=== PATIENT | male | born 1940 | race Caucasian/White ===

== ENCOUNTER 2022-06-26 19:13 | Inpatient (IN) ==
[2022-06-26] MEDS ORDERED: PANTOPRAZOLE 40 MG VIAL IV STA (19:45)
[2022-06-26] MEDS ORDERED: DIPH/TET/ACEL PERT BOOSTER VACCINE 0.5 ML VIAL IM ONE (19:45)
[2022-06-26 20:16] LABS: Basophils % 0.2 % (0.0-0.8); Hematocrit 30.5 VOL% (42.0-52.0); Hemoglobin 9.5 GM/DL (14.0-18.0); Immature Granulocytes % 0.5 %; Immature Granulocytes Absolute 0.06 #; Lymphocytes # 0.5 10*3/uL (1.4-4.0); Lymphocytes % 4.2 % (21.2-54.2); Mean Corpuscular HGB Conc 31.1 GM/DL (32-36); Mean Corpuscular Volume 92.4 FL (87-102); Mean Platelet Volume 8.7 FL (9.6-12.0); Monocytes # 0.6 10*3/uL (0.11-0.8); Monocytes % 4.9 % (1.7-12.7); Neutrophils % 90.2 % (38.7-73.9); Platelet Count 319 T/CUMM (130-400); Red Cell Distribution Width 13.2 % (9.3-17.3); White Blood Count 12.7 T/CUMM (4-12)
[2022-06-26 20:36] LABS: PT Patient Result 10.9 SECS (10.1-12.1)
[2022-06-26 20:38] LABS: Bilirubin,Total 0.5 MG/DL (0.20-1.00); Calcium 8.2 MG/DL (8.5-10.1); Osmolality,Calculated 279.8 MOS/KG (273-304); Potassium 4.8 MMOL/L (3.5-5.1); Total Protein 6.4 G/DL (6.4-8.2)
[2022-06-26 20:39] LABS: Lymphocytes 5 % (20-55); Total Cells Counted 100
[2022-06-26 20:40] LABS: Anisocytosis Slight
[2022-06-26 20:41] LABS: Elliptocytes Few; Ovalocytes Slight
[2022-06-26 20:46] LABS: Platelet Estimate Normal
[2022-06-26] MEDS ORDERED: SODIUM CHLORIDE 0.9% 1,000 ML IV STA (21:40)
[2022-06-26] MEDS ORDERED: ONDANSETRON 4 MG/2 ML VIAL IV PRN (21:47)
[2022-06-26] MEDS ORDERED: SIMETHICONE CHEW 125 MG TABLET PO PRN (21:47)
[2022-06-26] MEDS ORDERED: ACETAMINOPHEN 325 MG TABLET PO PRN (21:47)
[2022-06-26] MEDS ORDERED: SODIUM CHLORIDE 0.9% 1,000 ML IV PRN (22:21)
[2022-06-27] MEDS: SODIUM CHLORIDE 0.9% 1,000 ML IV SCH ×3 (00:36→21:16)
[2022-06-27 02:19] LABS: Hematocrit 27.9 VOL% (42.0-52.0); Hemoglobin 8.8 GM/DL (14.0-18.0)
[2022-06-27 02:41] LABS: Bilirubin,Total 0.6 MG/DL (0.20-1.00); Calcium 8.1 MG/DL (8.5-10.1); Osmolality,Calculated 276.8 MOS/KG (273-304); Potassium 4.7 MMOL/L (3.5-5.1); Total Protein 5.8 G/DL (6.4-8.2)
[2022-06-27 05:12] LABS: Basophils # 0.1 10*3/uL (0.0-0.2); Basophils % 0.5 % (0.0-0.8); Eosinophils % 0.1 % (0.00-10.9); Hematocrit 26.2 VOL% (42.0-52.0); Hemoglobin 8.1 GM/DL (14.0-18.0); Immature Granulocytes % 0.3 %; Immature Granulocytes Absolute 0.03 #; Lymphocytes # 1.5 10*3/uL (1.4-4.0); Lymphocytes % 14.7 % (21.2-54.2); Mean Corpuscular HGB Conc 30.9 GM/DL (32-36); Mean Platelet Volume 8.9 FL (9.6-12.0); Monocytes # 1.3 10*3/uL (0.11-0.8); Monocytes % 12.5 % (1.7-12.7); Neutrophils % 71.9 % (38.7-73.9); Platelet Count 280 T/CUMM (130-400); Red Blood Count 2.91 MC/CUMM (3.8-5.5); Red Cell Distribution Width 13.2 % (9.3-17.3)
[2022-06-27 05:25] LABS: PT Patient Result 11.4 SECS (10.1-12.1)
[2022-06-27 05:56] LABS: Hematocrit 25.3 VOL% (42.0-52.0); Hemoglobin 7.9 GM/DL (14.0-18.0)
[2022-06-27] MEDS ORDERED: traMADol 50 MG TABLET PO PRN (08:23)
[2022-06-27] MEDS ORDERED: METHOCARBAMOL 500 MG TABLET PO SCH (09:00)
[2022-06-27] MEDS: LISINOPRIL/HCTZ 20-12.5 MG TABLET PO SCH (09:38)
[2022-06-27] MEDS: OXYBUTYNIN XL 15 MG TABLET PO SCH (09:39)
[2022-06-27] MEDS: FLECAINIDE 50 MG TABLET PO SCH ×2 (09:39→21:09)
[2022-06-27] MEDS: PANTOPRAZOLE 40 MG VIAL IV SCH ×2 (09:46→21:10)
[2022-06-27] MEDS ORDERED: LIDOCAINE 2% 5 ML VIAL ONE (11:42)
[2022-06-27] MEDS ORDERED: propofoL 200 MG/20 ML VIAL IV ONE (11:42)
[2022-06-27 12:36] LABS: Hematocrit 26.9 VOL% (42.0-52.0); Hemoglobin 8.6 GM/DL (14.0-18.0)
[2022-06-27] MEDS ORDERED: LORazepam 1 MG TABLET PO SCH (21:00)
[2022-06-27] MEDS: cloNIDine 0.1 MG TABLET PO SCH (21:09)
[2022-06-27] MEDS: CITALOPRAM 40 MG TABLET PO SCH (21:09)
[2022-06-28 05:47] LABS: Basophils # 0.1 10*3/uL (0.0-0.2); Basophils % 0.7 % (0.0-0.8); Eosinophils # 0.1 10*3/uL (0.0-0.87); Eosinophils % 1.7 % (0.00-10.9); Hematocrit 23.5 VOL% (42.0-52.0); Hemoglobin 7.5 GM/DL (14.0-18.0); Immature Granulocytes % 0.4 %; Immature Granulocytes Absolute 0.03 #; Lymphocytes # 1.4 10*3/uL (1.4-4.0); Lymphocytes % 16.9 % (21.2-54.2); Mean Corpuscular HGB Conc 31.9 GM/DL (32-36); Mean Corpuscular Volume 90.7 FL (87-102); Mean Platelet Volume 8.8 FL (9.6-12.0); Monocytes # 1.4 10*3/uL (0.11-0.8); Monocytes % 16.6 % (1.7-12.7); Neutrophils % 63.7 % (38.7-73.9); Platelet Count 212 T/CUMM (130-400); Red Blood Count 2.59 MC/CUMM (3.8-5.5); Red Cell Distribution Width 13.8 % (9.3-17.3); White Blood Count 8.2 T/CUMM (4-12)
[2022-06-28 06:08] LABS: Osmolality,Calculated 278.7 MOS/KG (273-304); Potassium 4.3 MMOL/L (3.5-5.1)
[2022-06-28 06:11] LABS: Calcium 7.9 MG/DL (8.5-10.1); Osmolality,Calculated 278.7 MOS/KG (273-304); Potassium 4.4 MMOL/L (3.5-5.1)
[2022-06-28] MEDS: LEVOTHYROXINE 100 MCG TABLET PO SCH (06:17)
[2022-06-28] MEDS: SODIUM CHLORIDE 0.9% 1,000 ML IV SCH ×2 (06:18→17:29)
[2022-06-28 06:23] LABS: Hypochromia 1+; Lymphocytes 21 % (20-55); Total Cells Counted 100
[2022-06-28 06:24] LABS: Microcytosis 1+; Ovalocytes Few; Platelet Estimate Adequate; Polychromasia Slight
[2022-06-28] MEDS: PANTOPRAZOLE 40 MG VIAL IV SCH ×2 (08:45→21:27)
[2022-06-28] MEDS: LISINOPRIL/HCTZ 20-12.5 MG TABLET PO SCH (08:45)
[2022-06-28] MEDS: FLECAINIDE 50 MG TABLET PO SCH ×2 (08:45→20:36)
[2022-06-28] MEDS: OXYBUTYNIN XL 15 MG TABLET PO SCH (08:45)
[2022-06-28] MEDS ORDERED: ASPIRIN EC 81 MG TABLET PO SCH (11:30)
[2022-06-28] MEDS ORDERED: BISACODYL 5 MG TABLET PO ONE (15:00)
[2022-06-28] MEDS ORDERED: POLYETHYLENE GLYCOL POWDER 255 GM BOTTLE PO ONE (18:00)
[2022-06-28] MEDS: ASCORBIC ACID 500 MG TABLET PO SCH (20:36)
[2022-06-28] MEDS: cloNIDine 0.1 MG TABLET PO SCH (20:36)
[2022-06-28] MEDS: CITALOPRAM 40 MG TABLET PO SCH (20:37)
[2022-06-28] MEDS: ASPIRIN EC 81 MG TABLET PO SCH (20:37)
[2022-06-29] MEDS: SODIUM CHLORIDE 0.9% 1,000 ML IV SCH (04:14)
[2022-06-29] MEDS ORDERED: POLYETHYLENE GLYCOL POWDER 255 GM BOTTLE PO ONE (05:00)
[2022-06-29] MEDS: LEVOTHYROXINE 100 MCG TABLET PO SCH (06:27)
[2022-06-29 06:39] LABS: Calcium 8.4 MG/DL (8.5-10.1); Potassium 3.7 MMOL/L (3.5-5.1)
[2022-06-29 06:41] LABS: Basophils # 0.1 10*3/uL (0.0-0.2); Eosinophils # 0.2 10*3/uL (0.0-0.87); Eosinophils % 2.8 % (0.00-10.9); Hemoglobin 8.4 GM/DL (14.0-18.0); Immature Granulocytes % 0.5 %; Immature Granulocytes Absolute 0.04 #; Lymphocytes # 1.2 10*3/uL (1.4-4.0); Lymphocytes % 14.7 % (21.2-54.2); Mean Corpuscular HGB Conc 31.1 GM/DL (32-36); Mean Corpuscular Volume 90.9 FL (87-102); Mean Platelet Volume 9.1 FL (9.6-12.0); Monocytes # 1.2 10*3/uL (0.11-0.8); Monocytes % 15.3 % (1.7-12.7); Neutrophils % 65.7 % (38.7-73.9); Platelet Count 231 T/CUMM (130-400); Red Blood Count 2.97 MC/CUMM (3.8-5.5); Red Cell Distribution Width 13.7 % (9.3-17.3)
[2022-06-29] MEDS ORDERED: LACTATED RINGERS 1,000 ML IV SCH (14:30)
[2022-06-29] MEDS ORDERED: LIDOCAINE 2% 5 ML VIAL ONE (14:33)
[2022-06-29] MEDS ORDERED: propofoL 200 MG/20 ML VIAL IV ONE (14:33)
[2022-06-29] MEDS: ASCORBIC ACID 500 MG TABLET PO SCH ×2 (14:56→20:33)
[2022-06-29] MEDS: PANTOPRAZOLE 40 MG VIAL IV SCH ×2 (14:57→20:35)
[2022-06-29] MEDS: OXYBUTYNIN XL 15 MG TABLET PO SCH (14:57)
[2022-06-29] MEDS: FLECAINIDE 50 MG TABLET PO SCH ×2 (14:57→20:32)
[2022-06-29] MEDS: CITALOPRAM 40 MG TABLET PO SCH (20:32)
[2022-06-29] MEDS: ASPIRIN EC 81 MG TABLET PO SCH (20:32)
[2022-06-29] MEDS: cloNIDine 0.1 MG TABLET PO SCH (20:32)
[2022-06-30 05:10] LABS: Basophils # 0.1 10*3/uL (0.0-0.2); Basophils % 0.7 % (0.0-0.8); Eosinophils # 0.2 10*3/uL (0.0-0.87); Eosinophils % 2.7 % (0.00-10.9); Hematocrit 26.2 VOL% (42.0-52.0); Hemoglobin 8.4 GM/DL (14.0-18.0); Immature Granulocytes % 0.5 %; Immature Granulocytes Absolute 0.04 #; Lymphocytes % 13.6 % (21.2-54.2); Mean Corpuscular HGB Conc 32.1 GM/DL (32-36); Mean Corpuscular Volume 88.8 FL (87-102); Mean Platelet Volume 9.2 FL (9.6-12.0); Monocytes # 1.2 10*3/uL (0.11-0.8); Monocytes % 16.2 % (1.7-12.7); Neutrophils % 66.3 % (38.7-73.9); Platelet Count 222 T/CUMM (130-400); Red Blood Count 2.95 MC/CUMM (3.8-5.5); Red Cell Distribution Width 13.2 % (9.3-17.3); White Blood Count 7.6 T/CUMM (4-12)
[2022-06-30 05:24] LABS: Calcium 8.2 MG/DL (8.5-10.1); Osmolality,Calculated 274.7 MOS/KG (273-304); Potassium 3.7 MMOL/L (3.5-5.1)
[2022-06-30 06:25] LABS: Anisocytosis 1+; Eosinophils 4 % (0-10); Lymphocytes 16 % (20-55); Ovalocytes Few; Platelet Estimate Normal; Total Cells Counted 100
[2022-06-30] MEDS: LEVOTHYROXINE 100 MCG TABLET PO SCH (06:38)
[2022-06-30 07:25] VITALS: BP 105/49
[2022-06-30] MEDS: ASCORBIC ACID 500 MG TABLET PO SCH (08:26)
[2022-06-30] MEDS: OXYBUTYNIN XL 15 MG TABLET PO SCH (08:26)
[2022-06-30] MEDS: PANTOPRAZOLE 40 MG VIAL IV SCH (08:26)
[2022-06-30] MEDS: FLECAINIDE 50 MG TABLET PO SCH (08:26)
== END 2022-06-30 11:35 | disposition home or self-care (01) | DRG 813 ==
LOC: N.ED 19:13 → N.3E 21:47
PROVIDERS: ADMIT Internal Medicine; ATTEND Internal Medicine

== ENCOUNTER 2022-07-19 10:57 | Inpatient (IN) ==
[2022-07-19 11:26] LABS: Basophils # 0.1 10*3/uL (0.0-0.2); Basophils % 1.1 % (0.0-0.8); Eosinophils # 0.1 10*3/uL (0.0-0.87); Hematocrit 29.1 VOL% (42.0-52.0); Hemoglobin 8.9 GM/DL (14.0-18.0); Immature Granulocytes % 0.2 %; Immature Granulocytes Absolute 0.01 #; Lymphocytes % 15.6 % (21.2-54.2); Mean Corpuscular HGB Conc 30.6 GM/DL (32-36); Mean Corpuscular Volume 84.8 FL (87-102); Mean Platelet Volume 8.6 FL (9.6-12.0); Monocytes # 0.9 10*3/uL (0.11-0.8); Monocytes % 13.6 % (1.7-12.7); Neutrophils % 67.5 % (38.7-73.9); Platelet Count 402 T/CUMM (130-400); Red Blood Count 3.43 MC/CUMM (3.8-5.5); Red Cell Distribution Width 14.8 % (9.3-17.3); White Blood Count 6.42 T/CUMM (4-12)
[2022-07-19 11:41] LABS: Albumin 3.1 G/DL (3.4-5.0); Bilirubin,Total 0.7 MG/DL (0.20-1.00); Calcium 8.5 MG/DL (8.5-10.1); Osmolality,Calculated 279.4 MOS/KG (273-304); Potassium 4.3 MMOL/L (3.5-5.1); Total Protein 6.9 G/DL (6.4-8.2)
[2022-07-19] MEDS ORDERED: hydrALAZINE 20 MG/1 ML VIAL IV PRN (14:11)
[2022-07-19] MEDS ORDERED: ACETAMINOPHEN 325 MG TABLET PO PRN (14:11)
[2022-07-19] MEDS ORDERED: ALBUTEROL/IPRATROPIUM 3 ML NEB RESP TX PRN (14:11)
[2022-07-19] MEDS ORDERED: BISACODYL 5 MG TABLET PO PRN (14:11)
[2022-07-19] MEDS ORDERED: ONDANSETRON 4 MG/2 ML VIAL IV PRN (14:11)
[2022-07-19] MEDS ORDERED: MORPHINE 2 MG/1 ML SYRINGE IV PRN (14:11)
[2022-07-19] MEDS ORDERED: HEPARIN DRIP 25,000 UNITS/500 ML PREMIX IV SCH ×5 (14:30→18:00)
[2022-07-19] MEDS: cefTRIAXone 1,000 MG in SODIUM CHLORIDE 0.9% 100 ML IV SCH (15:47)
[2022-07-19] MEDS ORDERED: HEPARIN/NACL 0.9% 2 UNITS/ML 3,000 UNIT/1,500 ML BAG IV ONE (15:49)
[2022-07-19] MEDS ORDERED: ALTEPLASE 4 MG in SODIUM CHLORIDE 0.9% 80 ML IV SCH ×3 (16:00→17:00)
[2022-07-19] MEDS ORDERED: MIDAZOLAM 2 MG/2 ML VIAL ONE (16:01)
[2022-07-19] MEDS ORDERED: HYDROmorphone 1 MG/1 ML SYRINGE ONE (16:01)
[2022-07-19] MEDS ORDERED: diphenhydrAMINE 50 MG/1 ML VIAL ONE (16:05)
[2022-07-19] MEDS ORDERED: SODIUM CHLORIDE 0.9% 1,000 ML IV SCH ×2 (16:22→16:30)
[2022-07-19 17:39] LABS: INR 1.1; Partial Thromboplastin Time 29.3 SECS (23.7-32.9)
[2022-07-19] MEDS: AZITHROMYCIN INJ 500 MG in SODIUM CHLORIDE 0.9% 250 ML IV SCH (17:41)
[2022-07-19 18:17] LABS: % Iron Saturation 5.5 % (18-50)
[2022-07-19 18:21] LABS: Folate 17.24 NG/ML (5.38-24.0)
[2022-07-19] MEDS: ALBUTEROL/IPRATROPIUM 3 ML NEB RESP TX SCH (19:28)
[2022-07-19] MEDS: ZALEPLON 5 MG CAPSULE PO SCH (22:20)
[2022-07-20] MEDS: ALBUTEROL/IPRATROPIUM 3 ML NEB RESP TX SCH ×4 (00:42→18:49)
[2022-07-20 06:13] LABS: Basophils # 0.1 10*3/uL (0.0-0.2); Basophils % 0.9 % (0.0-0.8); Eosinophils # 0.1 10*3/uL (0.0-0.87); Eosinophils % 0.8 % (0.00-10.9); Hemoglobin 8.1 GM/DL (14.0-18.0); INR 1.1; Immature Granulocytes % 0.4 %; Immature Granulocytes Absolute 0.04 #; Lymphocytes # 0.8 10*3/uL (1.4-4.0); Lymphocytes % 9.1 % (21.2-54.2); Mean Corpuscular HGB Conc 31.2 GM/DL (32-36); Mean Corpuscular Volume 83.9 FL (87-102); Monocytes # 1.1 10*3/uL (0.11-0.8); Monocytes % 12.3 % (1.7-12.7); Neutrophils % 76.5 % (38.7-73.9); PT Patient Result 11.9 SECS (10.1-12.1); Platelet Count 366 T/CUMM (130-400); Red Cell Distribution Width 14.8 % (9.3-17.3); White Blood Count 9.04 T/CUMM (4-12)
[2022-07-20 06:19] LABS: Partial Thromboplastin Time 26.3 SECS (23.7-32.9)
[2022-07-20 06:29] LABS: Calcium 8.4 MG/DL (8.5-10.1); Osmolality,Calculated 278.4 MOS/KG (273-304); Potassium 4.1 MMOL/L (3.5-5.1); Risk Ratio 3.36; Thyroid Stimulating Hormone 0.393 uIU/ml (0.358-3.74); VLDL Cholesterol 10.4 MG/DL
[2022-07-20] MEDS: PANTOPRAZOLE 40 MG TABLET PO SCH (09:24)
[2022-07-20] MEDS: FLECAINIDE 50 MG TABLET PO SCH ×2 (10:07→21:40)
[2022-07-20] MEDS ORDERED: MELATONIN 3 MG TABLET PO PRN (14:14)
[2022-07-20] MEDS: cefTRIAXone 1,000 MG in SODIUM CHLORIDE 0.9% 100 ML IV SCH (17:08)
[2022-07-20 18:14] LABS: Partial Thromboplastin Time 27.4 SECS (23.7-32.9)
[2022-07-20] MEDS: AZITHROMYCIN INJ 500 MG in SODIUM CHLORIDE 0.9% 250 ML IV SCH (18:18)
[2022-07-20] MEDS: APIXABAN 5 MG TABLET PO SCH (21:40)
[2022-07-20] MEDS: ZALEPLON 5 MG CAPSULE PO SCH (21:40)
[2022-07-20] MEDS: ASCORBIC ACID 500 MG TABLET PO SCH (21:40)
[2022-07-21] MEDS: ALBUTEROL/IPRATROPIUM 3 ML NEB RESP TX SCH ×3 (00:10→13:30)
[2022-07-21 05:30] LABS: Basophils % 0.5 % (0.0-0.8); Eosinophils # 0.1 10*3/uL (0.0-0.87); Eosinophils % 0.8 % (0.00-10.9); Hematocrit 27.1 VOL% (42.0-52.0); Hemoglobin 8.3 GM/DL (14.0-18.0); Immature Granulocytes % 0.3 %; Immature Granulocytes Absolute 0.03 #; Lymphocytes # 0.9 10*3/uL (1.4-4.0); Lymphocytes % 10.4 % (21.2-54.2); Mean Corpuscular HGB Conc 30.6 GM/DL (32-36); Mean Corpuscular Volume 83.4 FL (87-102); Mean Platelet Volume 8.5 FL (9.6-12.0); Monocytes # 1.3 10*3/uL (0.11-0.8); Monocytes % 15.4 % (1.7-12.7); Neutrophils % 72.6 % (38.7-73.9); Platelet Count 346 T/CUMM (130-400); Red Blood Count 3.25 MC/CUMM (3.8-5.5); Red Cell Distribution Width 14.9 % (9.3-17.3); White Blood Count 8.69 T/CUMM (4-12)
[2022-07-21 05:50] LABS: Calcium 8.5 MG/DL (8.5-10.1); Osmolality,Calculated 279.5 MOS/KG (273-304); Potassium 3.9 MMOL/L (3.5-5.1)
[2022-07-21] MEDS ORDERED: LEVOTHYROXINE 100 MCG TABLET PO SCH (06:30)
[2022-07-21] MEDS ORDERED: CHOLECALCIFEROL 400 UNIT TABLET PO SCH (09:00)
[2022-07-21] MEDS ORDERED: OMEGA 3 ACID ETHYL ESTERS 1 GM CAPSULE PO SCH (09:00)
[2022-07-21] MEDS ORDERED: ARIPiprazole 5 MG TABLET PO SCH (09:00)
[2022-07-21] MEDS ORDERED: ZINC SULFATE 220 MG CAPSULE PO SCH (09:00)
[2022-07-21] MEDS ORDERED: MIRABEGRON 50 MG PO SCH (09:00)
[2022-07-21] MEDS ORDERED: CHOLECALCIFEROL 1,000 UNIT TABLET PO SCH (09:00)
[2022-07-21] MEDS ORDERED: PYRIDOXINE 50 MG TABLET PO SCH (09:00)
[2022-07-21] MEDS ORDERED: CYANOCOBALAMIN 500 MCG TABLET PO SCH (09:00)
[2022-07-21] MEDS: APIXABAN 5 MG TABLET PO SCH (09:47)
[2022-07-21] MEDS: PANTOPRAZOLE 40 MG TABLET PO SCH (09:47)
[2022-07-21] MEDS: ASCORBIC ACID 500 MG TABLET PO SCH (09:48)
[2022-07-21] MEDS: FLECAINIDE 50 MG TABLET PO SCH (09:54)
[2022-07-21 11:53] VITALS: BP 134/76
[2022-07-28] MEDS ORDERED: APIXABAN 5 MG TABLET PO SCH (09:00)
== END 2022-07-21 15:58 | disposition home or self-care (01) | DRG 167 ==
LOC: N.ED 10:57 → SUATTDRO 14:11 → N.EDINP 14:11 → N.ICU 17:33 → N.TELEN 07-20 14:43
PROVIDERS: ADMIT Internal Medicine; ATTEND Internal Medicine